=== PATIENT | male | born 1975 | race Caucasian/White ===

== ENCOUNTER 2022-03-27 15:06 | Observation (INO) | payer OTHER ==
[2022-03-27] MEDS ORDERED: FAMOTIDINE 20 MG/50 ML IVPB 20 MG/50 ML MG IVPB ONE (18:06)
[2022-03-27] MEDS ORDERED: ONDANSETRON 4 MG/2 ML VIAL IVPUSH ONE (18:06)
[2022-03-27] MEDS ORDERED: MAG HYDROX/AL HYDROX/SIMETH -MYLANTA- ORAL SUSPENSION PO ONE (18:07)
[2022-03-27] MEDS ORDERED: SUCRALFATE 1 GM/10 ML UNIT DOSE CUPS PO ONE (18:10)
[2022-03-27] MEDS ORDERED: SUCRALFATE 1 GM TABLET (FP) ONE (18:25)
[2022-03-27] MEDS ORDERED: MAG HYDROX/AL HYDROX/SIMETH 30 ML UNIT-DOSE CUP ONE (18:26)
[2022-03-27] MEDS ORDERED: FAMOTIDINE 10 MG/ML VIAL IVPB ONE (18:26)
[2022-03-27] MEDS ORDERED: ONDANSETRON 4 MG/2 ML VIAL ONE (18:26)
[2022-03-27 19:03] LABS: BASO % 0.3 % (0-2.0); EOS % 0.1 % (0-4.5); HEMOGLOBIN 10.9 GM/dL (11.7-16.9); LYMPH % 10.8 % (8-40); MCH 23.5 pg (25.7-33.7); MCHC 32.1 g/dl (32.0-35.9); MEAN PLT VOLUME 7.7 fl (7.5-11.1); NEUT % 83.8 % (42.8-82.8); PLATELET COUNT 290 10^3/uL (134-434); RBC 4.66 M/mm3 (4.00-5.60); RDW 19.2 % (11.9-15.9); WHITE BLOOD COUNT 8.9 K/mm3 (4.0-10.0)
[2022-03-27 19:39] LABS: ALBUMIN 4.1 g/dl (3.4-5.0); BLOOD UREA NITROGEN 11.2 mg/dL (7-18); CALCIUM 8.9 mg/dL (8.5-10.1)
[2022-03-27 19:42] LABS: CREATININE 0.8 mg/dL (0.55-1.3)
[2022-03-27 19:44] LABS: BILIRUBIN,TOTAL 0.5 mg/dL (0.2-1)
[2022-03-27] MEDS ORDERED: ASPIRIN 81 MG CHEWABLE TABLETS PO ONE (23:06)
[2022-03-28] MEDS ORDERED: ASPIRIN 81 MG CHEWABLE TABLETS ONE (00:15)
[2022-03-28] MEDS ORDERED: FAMOTIDINE 10 MG TABLET PO PRN (01:26)
[2022-03-28 02:04] LABS: RETICULOCYTES 2.38 % (0.5-1.5)
[2022-03-28 07:45] LABS: HEMATOCRIT 33.7 % (35.4-49); HEMOGLOBIN 10.7 GM/dL (11.7-16.9); LYMPH % 27.5 % (8-40); MCH 23.3 pg (25.7-33.7); MCHC 31.7 g/dl (32.0-35.9); MEAN CELL VOLUME 73.3 fl (80-96); MEAN PLT VOLUME 8.2 fl (7.5-11.1); MONO % 11.7 % (3.8-10.2); NEUT % 58.8 % (42.8-82.8); PLATELET COUNT 269 10^3/uL (134-434); RDW 19.1 % (11.9-15.9); WHITE BLOOD COUNT 4.7 K/mm3 (4.0-10.0)
[2022-03-28 08:06] LABS: CALCIUM 8.9 mg/dL (8.5-10.1)
[2022-03-28 08:07] LABS: MAGNESIUM 2.5 mg/dL (1.8-2.4)
[2022-03-28 08:09] LABS: ALBUMIN 3.7 g/dl (3.4-5.0); BLOOD UREA NITROGEN 12.1 mg/dL (7-18)
[2022-03-28 08:10] LABS: CREATININE 0.8 mg/dL (0.55-1.3)
[2022-03-28 08:12] LABS: TOT PROT 7.3 g/dl (6.4-8.2)
[2022-03-28 08:13] LABS: BILIRUBIN,TOTAL 0.9 mg/dL (0.2-1)
[2022-03-28] MEDS ORDERED: ENOXAPARIN NA (PORCINE) 40 MG/0.4 ML DISP.SYRIN SQ SCH (10:00)
[2022-03-28 11:08] LABS: N-TERMINAL BNP 14.2 pg/ml (5-125)
[2022-03-28] MEDS ORDERED: MAG HYDROX/AL HYDROX/SIMETH 30 ML UNIT-DOSE CUP PO PRN (14:03)
[2022-03-28] MEDS ORDERED: IRON SUCROSE INJECTION 200 MG in SODIUM CHLORIDE 90 ML IVPB ONE (14:30)
[2022-03-28 18:39] VITALS: BMI 30.7
[2022-03-28] MEDS ORDERED: ATORVASTATIN CA 40 MG TABLET (FP) PO SCH (22:00)
[2022-03-29 07:36] LABS: BASO % 0.7 % (0-2.0); EOS % 1.3 % (0-4.5); HEMATOCRIT 32.7 % (35.4-49); HEMOGLOBIN 10.3 GM/dL (11.7-16.9); LYMPH % 23.8 % (8-40); MCH 23.2 pg (25.7-33.7); MCHC 31.6 g/dl (32.0-35.9); MEAN CELL VOLUME 73.5 fl (80-96); MONO % 12.5 % (3.8-10.2); NEUT % 61.7 % (42.8-82.8); PLATELET COUNT 237 10^3/uL (134-434); RBC 4.44 M/mm3 (4.00-5.60); RDW 18.4 % (11.9-15.9); WHITE BLOOD COUNT 4.8 K/mm3 (4.0-10.0)
[2022-03-29 07:38] LABS: PROTHROMBIN TIME (PATIENT) 11.5 SEC (9.7-13.0)
[2022-03-29] MEDS ORDERED: PANTOPRAZOLE 40 MG TABLET PO SCH ×2 (10:00→22:00)
[2022-03-29 10:59] LABS: CALCIUM 8.5 mg/dL (8.5-10.1)
[2022-03-29 11:00] LABS: BLOOD UREA NITROGEN 18.4 mg/dL (7-18)
[2022-03-29 11:03] LABS: CREATININE 0.9 mg/dL (0.55-1.3)
[2022-03-29] MEDS ORDERED: IRON SUCROSE INJECTION 200 MG in SODIUM CHLORIDE 90 ML IVPB ONE (12:15)
[2022-03-29 13:24] VITALS: BP 120/77; PULSE 77; TEMP 98.5
== END 2022-03-29 16:59 | disposition home or self-care (01) ==
LOC: JER 15:06 → JERBED 23:06 → J4W 03-28 17:39
PROVIDERS: ADMIT Internal Medicine; ATTEND Nurse Practitioner Family
PROC: 3E023GC Introduction of Other Therapeutic Substance into Muscle, Percutaneous Approach (ICD-10-PCS; principal; 2022-03-27)
PROC: 3E033GC Introduction of Other Therapeutic Substance into Peripheral Vein, Percutaneous Approach (ICD-10-PCS; 2022-03-27)
DX: N20.0 Calculus of kidney (principal); R10.13 Epigastric pain; D50.9 Iron deficiency anemia, unspecified; Z68.30 Body mass index [BMI] 30.0-30.9, adult; R07.9 Chest pain, unspecified; E66.9 Obesity, unspecified
CPT/HCPCS: 36415; 71045-TC-FY; 71260-TC; 74177-TC; 80048; 80053; 80061; 82607; 82728; 82746; 83036; 83540; 83550; 83615; 83735; 83880; 84100; 84484; 85025; 85045; 85610; 86850; 86900; 86901; 88305-TC; 88342-TC; 93005; 93010; 93306-TC; 93351; 96365; 96366; 96367; 96372; 96375; 99285-25; C9803-CS; G0378; J1756; Q9967; U0003; U0005